=== PATIENT | male | born 1975 | race Caucasian/White ===

== ENCOUNTER → 2020-09-16 | Outpatient (CLI) | payer BC, OTHER | LOC: EXRD 08:09 | DX: R10.11 Right upper quadrant pain (principal); E11.8 Type 2 diabetes mellitus with unspecified complications; E03.9 Hypothyroidism, unspecified; E78.2 Mixed hyperlipidemia; K76.0 Fatty (change of) liver, not elsewhere classified | CPT/HCPCS: 76705 ==

== ENCOUNTER 2020-10-21 09:11 | Emergency (ER) | payer BC, OTHER ==
[2020-10-21 10:04] LABS: HEMOGLOBIN 15.9 gm/dl (14.0-17.5); RED BLOOD COUNT 5.5 M/UL (4.20-5.50); WHITE BLOOD COUNT 13.2 K/UL (4.5-11.0)
[2020-10-21 10:45] LABS: BUN/CREATININE RATIO 25 (0-10)
== END 2020-10-21 12:58 | disposition home or self-care (01) ==
LOC: ER1 09:11
PROVIDERS: Emergency Medicine
DX: N20.0 Calculus of kidney (principal); R91.1 Solitary pulmonary nodule; I12.9 Hypertensive chronic kidney disease with stage 1 through stage 4 chronic kidney disease, or unspecified chronic kidney disease; N18.9 Chronic kidney disease, unspecified; E11.22 Type 2 diabetes mellitus with diabetic chronic kidney disease; E11.65 Type 2 diabetes mellitus with hyperglycemia; Z20.822 Contact with and (suspected) exposure to COVID-19
CPT/HCPCS: 70450; 71045; 80053; 82550; 82553; 83605; 83735; 83874; 84484; 85025; 93005; 96374; 99284; J2405; J7030; U0002

== ENCOUNTER → 2020-11-17 | Outpatient (CLI) | payer BC | LOC: KOH-I 11-10 08:30 | DX: R91.8 Other nonspecific abnormal finding of lung field (principal); R05 Cough; R06.02 Shortness of breath | CPT/HCPCS: 71250 ==

== ENCOUNTER → 2021-06-10 | Outpatient (CLI) | payer BC | LOC: KOH-I 09:50 | DX: R05.9 Cough, unspecified (principal) | CPT/HCPCS: 71046 ==

== ENCOUNTER → 2022-01-03 | Outpatient (CLI) | payer BC | LOC: WCC 07:59 | DX: S81.801A Unspecified open wound, right lower leg, initial encounter (principal); I10 Essential (primary) hypertension; E11.59 Type 2 diabetes mellitus with other circulatory complications; E11.40 Type 2 diabetes mellitus with diabetic neuropathy, unspecified; R60.0 Localized edema; Z79.4 Long term (current) use of insulin | CPT/HCPCS: G0463 ==